=== PATIENT | male | born 1950 | race Caucasian/White ===

== ENCOUNTER 2017-06-09 14:23 | Inpatient (IN) | payer MEDICAID, OTHER ==
[~2017-06-09] VITALS: Ht 170.2 cm; Wt 86.2 kg
[2017-06-09] MEDS ORDERED: METF-414 PO (14:38)
[2017-06-09] MEDS ORDERED: ONDANSETRON HCL 4MG/2ML INJ IV STA (15:30)
[2017-06-09] MEDS ORDERED: MORPHINE SULFATE 4 MG/ML CPJ (NOT FOR IM USE) IV STA (15:30)
[2017-06-09] MEDS ORDERED: SODIUM CHLORIDE 0.9% 500 ML IV ONE (15:30)
[2017-06-09 15:59] LABS: HEMATOCRIT. 44.9 % (42.0-52.0); MEAN CORPUSCULAR VOLUME 92.9 fL (80.0-94.0); MEAN PLATELET VOLUME 9.3 fl (7.4-10.4); PLATELET 195 x1000/uL (130-400); RED BLOOD CELL COUNT 4.84 mill/uL (4.7-6.1); RED CELL DISTRIBUTION WIDTH 14.2 % (11.6-14.6)
[2017-06-09 16:07] LABS: CHLORIDE 104 mEq/L (98-107); INR 1.1; PARTIAL THROMBOPLASTIN TIME 26.8 sec (23.4-31.0)
[2017-06-09 16:40] LABS: PLATELET ESTIMATE NORMAL
[2017-06-09 18:25] VITALS: BP 134/54
[2017-06-09 20:00] VITALS: BP 129/68
[2017-06-09] MEDS ORDERED: MAGNESIUM/ALUMINUM HYDROXIDE/SIMETHICONE 30ML UDC PO PRN (20:15)
[2017-06-09] MEDS ORDERED: MORPHINE SULFATE 4 MG/ML CPJ (NOT FOR IM USE) IV PRN (20:15)
[2017-06-09] MEDS ORDERED: HYDROCODONE/ACETAMINOPHEN 5/325MG TABLET PO PRN (20:15)
[2017-06-09] MEDS ORDERED: IPRATROPIUM/ALBUTEROL 0.5-3(2.5)MG/3ML NEB INH PRN (20:15)
[2017-06-09] MEDS ORDERED: CLONIDINE 0.1MG TABLET PO PRN (20:15)
[2017-06-09 22:04] LABS: CHLORIDE 106 mEq/L (98-107)
[2017-06-10] VITALS: BP 120/69
[2017-06-10] MEDS ORDERED: DEXTROSE 50% WATER 50ML SYRINGE IV PRN (01:45)
[2017-06-10 04:00] VITALS: BP 117/71
[2017-06-10] MEDS ORDERED: BLOOD SUGAR DIAGNOSTIC STRIP TEST SCH (07:20)
[2017-06-10 07:29] LABS: BASOPHILS % 0.5 % (0.0-2.0); EOSINOPHILS % 1.6 % (0.0-5.0); HEMATOCRIT. 44.7 % (42.0-52.0); HEMOGLOBIN. 14.9 g/dL (14.0-18.0); LYMPHOCYTES % 29.3 % (20.0-50.0); MEAN CORPUSCULAR HEMOGLOBIN 30.9 pg (28.0-32.0); MEAN CORPUSCULAR VOLUME 92.8 fL (80.0-94.0); MEAN PLATELET VOLUME 9.1 fl (7.4-10.4); MONOCYTES % 7.8 % (2.0-8.0); NEUTROPHILS % 60.8 % (40.0-76.0); PLATELET 174 x1000/uL (130-400); RED BLOOD CELL COUNT 4.82 mill/uL (4.7-6.1); RED CELL DISTRIBUTION WIDTH 14.2 % (11.6-14.6)
[2017-06-10] MEDS ORDERED: INSULIN LISPRO 100 UNITS/ML SUBCUT SCH (07:50)
[2017-06-10 10:04] VITALS: BP 139/68
[2017-06-10] MEDS ORDERED: GELATIN SPONGE,ABSORBABLE SZ 100 ONE (11:54)
[2017-06-10] MEDS ORDERED: BACITRACIN 15GM TUBE TOP ONE (11:54)
[2017-06-10] MEDS ORDERED: THROMBIN (BOVINE) 5000 UNITS/VIAL TOP ONE (11:55)
[2017-06-10] MEDS ORDERED: BACITRACIN 50,000 UNITS/VIAL ONE (11:55)
[2017-06-10] MEDS ORDERED: NORMAL SALINE 0.9% 10 ML SYR ONE (11:55)
== END 2017-06-10 11:35 | disposition home or self-care (01) | DRG 347 ==
LOC: ER 15:22 → 6EST 15:38 → EDBEDREQTM 15:47 → EDBEDREQ 15:47 → ENRESERV 16:53
PROVIDERS: ADMIT Internal Medicine; ATTEND Internal Medicine
DX: M48.02 Spinal stenosis, cervical region (principal); J18.9 Pneumonia, unspecified organism; E11.65 Type 2 diabetes mellitus with hyperglycemia; G89.29 Other chronic pain; M19.90 Unspecified osteoarthritis, unspecified site; E86.0 Dehydration; Z96.659 Presence of unspecified artificial knee joint; Z79.84 Long term (current) use of oral hypoglycemic drugs
CPT/HCPCS: 36415; 71045; 72141; 80048; 80061; 82962; 84443; 93005; 93970; 96374; 96375; 97162; 99285; J2270; J2405; J3490; J7040